=== PATIENT | female | born 1990 | race Caucasian/White ===

== ENCOUNTER 2019-09-24 04:08 | Inpatient (IN) | payer OTHER ==
[2019-09-24] VITALS (17 sets, daily range): BP systolic 102–143; BP diastolic 55–90
[~2019-09-24] VITALS: Ht 165.1 cm; Wt 72.0 kg
[2019-09-24] MEDS ORDERED: LACTATED RINGER'S 1000 ML IV STA ×2 (04:52→04:57)
[2019-09-24] MEDS ORDERED: LR 1,000 ML IV SCH ×2 (04:52→07:00)
[2019-09-24] MEDS ORDERED: NALBUPHINE HCL 10 MG/ML AMP (J2300) IV ONE (05:00)
[2019-09-24 05:35] LABS: BASO # 0.1 10^3/uL (0.0-0.2); BASO % 0.4 % (0.0-1.0); EOS % 0.3 % (0.0-3.0); HEMOGLOBIN 10.8 g/dl (12.0-15.5); LYMPH # 2.1 10^3/uL (1.5-5.0); LYMPH % 14.7 % (24.0-44.0); MEAN CORPUSCULAR HGB CONC 32.7 g/dl (32.0-36.5); MEAN CORPUSCULAR VOLUME 88.7 fl (80.0-96.0); MONO # 1.2 10^3/uL (0.0-0.8); MONO % 8.4 % (0.0-5.0); NEUTROPHILS # 10.7 10^3/uL (1.5-8.5); NEUTROPHILS % 75.2 % (36.0-66.0); PLATELET COUNT, AUTOMATED 215 10^3/uL (150-450); RED BLOOD COUNT 3.72 10^6/uL (4.00-5.40); WHITE BLOOD COUNT 14.2 10^3/uL (4.0-10.0)
--- NOTE | 2019-09-24 05:50 | HPEPDOC ---
Obstetrical History & Physical General Date of Admission Sep 24, 2019 at 04:52 History of Present Illness patient is a 29 yo G1 @ 40+1wks gestation presents with regular painful contractions. denies LOF/VB. Patient desires unmedicated delivery. Chief Complaint: Contractions, term Information Provided By: Patient Age: 29 : 1 Term: 0 Pre-term: 0 Abortions: 0 Livin Care Care: Good Care Dating Final EDC: Sep 22, 2019 Final EDC for Daily Update: Sep 22, 2019 Final EDC by: 1st trimester (US) EGA at Admission: 40 Past Medical History Past Obstetrical History : Past Obstetrical History: Primgravida [employer] History: No pertinent history Past Medical History Medical History denies Surgical History: Denies/None Family History Significant Family History: No pertinent family hx Social History Marital Status: Family situation: Spouse/partner home * Smoker: non-smoker Alcohol: Denies Drugs: denies Imunizations Tdap status: current Influenza Status: current Allergies Coded Allergies: No Known Allergies (Unverified , 09/24/19) Physical Examination Physical Examination GENERAL: Alert and oriented times three. BREAST: . ABDOMEN: Gravid and non-tender to touch. FETUS: fetus is vertex (VTX) by Dm. HEART RATE: Regular rate and rhythm. LUNGS: Clear to auscultation (CTA). EXTREMITIES: No edema/erythema/tenderness. EFW: 3400gm Laboratory Data 24H LABS Laboratory Tests 2 09/24/19 05:02: Serology Scanned Report Hepatitis B Testing 09/24/19 05:20: Immature Granulocyte % (Auto) 1.0, Neutrophils (%) (Auto) 75.2H, Lymphocytes (%) (Auto) 14.7L, Monocytes (%) (Auto) 8.4H, Eosinophils (%) (Auto) 0.3, Basophils (%) (Auto) 0.4, Neutrophils # (Auto) 10.7H, Lymphocytes # (Auto) 2.1, Monocytes # (Auto) 1.2H, Eosinophils # (Auto) 0.0, Basophils # (Auto) 0.1, Nucleated Red Blood Cells % (auto) 0.0 CBC/BMP Laboratory Tests 09/24/19 05:20 Pertinent Laboratoy Data Blood Type: A- RBC Antibody Screen: Negative HIV: Negative Hepatitis B: Negative Rapid Plasma Reagin: Nonreactive Rubella: Immune Varicella: Immune Chlamydia/Gonorrhea: Negative Group B Streptococcus: Negative Anatomy Ultrasound Placenta Location: Anterior Normal Anatomy: Yes Placenta Previa: No Vaginal Examination Dilation: 6 cm Effacement: 90% Station: -1 Presentation: Cephalic presentation Assessment Heart Rate (FHR): 135 Variability: Moderate Accelerations: Positive Decelerations: None Tocometer Contractions: Yes Frequency: every 1-3 min. Assessment/Plan Assessment Patient is a 29 G1 @40+1wks gestation in labor. Discussed with patient risk of emergent delivery for /maternal concern; use of antibiotics for s/s of infection; bleeding requiring blood transfusion and associated risks; p ossible operative vaginal delivery with forceps or vacuum; episiotomy; use of internal monitoring. Plan Admit and orient. 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 Diet: clear Group B Streptococcus (GBS) neg Labs and intravenous (IV) per unit protocol. augmentation with pit as needed anesthesia consult for pain management as needed. pelvis adequate for trial of labor. SRINIVAS CHEN DO Sep 24, 2019 05:50
[2019-09-24] MEDS ORDERED: PROMETHAZINE INJ 25 MG/ML VIAL (J2550) IV ONE ×2 (07:00→09:00)
[2019-09-24] MEDS ORDERED: NALBUPHINE HCL 10 MG/ML AMP (J2300) IM ONE (07:00)
--- NOTE | 2019-09-24 08:59 | IPNPDOC ---
Text Note Date of Service The patient was seen on 09/24/19. NOTE Patient seen. Slightly uncomfortable with contractions, but tolerating well. Not receiving pain control. FHT: 130s, reactive, no decels, Category 1. SVE 7/100/0 AROM clear. Continue expectant mgt after AROM. Pain control per patient. Will switch to IV stadol if desired. Fetus reassuring. VS,Fishbone, I+O VS, Fishbone, I+O Laboratory Tests 09/24/19 05:20 Vital Signs Date Time Temp Pulse Resp B/P (MAP) Pulse Ox O2 Delivery O2 Flow Rate FiO2 09/24/19 04:35 98.2 100 122/81 (95) 98.2 Ciara Walker MD Sep 24, 2019 08:59
[2019-09-24] MEDS ORDERED: BUTORPHANOL 2 MG/ML INJ (J0595) IV PRN (09:00)
--- NOTE | 2019-09-24 10:55 | IPNPDOC ---
Text Note Date of Service The patient was seen on 09/24/19. NOTE Intrapartum Note Patient doing well, still does not desire epidural. Vitals wnl, afebrile Cat I FHRT with bl 130's, +accels, -decels, mod antoinette [place]: ctx q2min SCE /-1, clear fluid still Will continue to closely monitor Plan to recheck in 2hr or earlier as indicated Safe to proceed Dr. Esmer Rose MD VS,Melina, I+O VSMelina I+O Laboratory Tests 09/24/19 05:20 Vital Signs Date Time Temp Pulse Resp B/P (MAP) Pulse Ox O2 Delivery O2 Flow Rate FiO2 09/24/19 10:21 18 119/66 09/24/19 10:17 98.2 91 Room Air 98.2 09/24/19 07:03 98 Esmer Rose MD Sep 24, 2019 10:55
[2019-09-24] MEDS ORDERED: OXYTOCIN 30 UNITS IN 0.9% NaCl 500ML IV BAG (J2590) As Ordered ONE (12:46)
--- NOTE | 2019-09-24 13:49 | IPNPDOC ---
Text Note Date of Service The patient was seen on 09/24/19. NOTE Called by nurse due to patient having significant pressure. Patient with sign ificant discomfort during contractions and trying not to push. x1 stadol. Declines epidural. FHT 150s, reactive, no decels currently, previously had variables, contractions q2-4min, Category 1. SVE 9/100/2. Will try bath tub to relax patient. Discussed not pushing until cervix completely dilated due to risk of cervical laceration which patient understood. VS,Fishbone, I+O VS, Fishbone, I+O Laboratory Tests 09/24/19 05:20 Vital Signs Date Time Temp Pulse Resp B/P (MAP) Pulse Ox O2 Delivery O2 Flow Rate FiO2 09/24/19 12:59 98.1 82 18 125/59 (81) Room Air 98.1 09/24/19 07:03 98 Ciara Walker MD Sep 24, 2019 13:49
[2019-09-24] MEDS ORDERED: cefTRIAXone SOD 1 GM VIAL (J0696) As Ordered ONE (14:41)
[2019-09-24] MEDS ORDERED: OXYTOCIN DRIP 30 UNITS in IV 1 EA IV SCH (16:29)
[2019-09-24] MEDS ORDERED: ONDANSETRON 4MG/2ML VIAL (J2405) IV PRN (16:30)
[2019-09-24] MEDS ORDERED: METHYLERGONOVINE MALEATE 0.2 MG TAB PO PRN (16:30)
[2019-09-24] MEDS ORDERED: IBUPROFEN 600 MG TAB PO PRN ×2 (16:30)
[2019-09-24] MEDS ORDERED: MOM 30ML SUSPENSION UDC PO PRN (16:30)
[2019-09-24] MEDS ORDERED: IBUPROFEN 800 MG TAB PO PRN (16:30)
[2019-09-24] MEDS ORDERED: SIMETHICONE 80 MG CHEW TAB PO PRN (16:30)
[2019-09-24] MEDS ORDERED: LIDOCAINE 1% MDV 20ML VIAL INFIL ONE ×2 (16:30)
[2019-09-24] MEDS ORDERED: RHOGAM 300 MCG (1500 IU) INJ (J2790) IM SCH ×2 (16:30)
[2019-09-24] MEDS ORDERED: MEASLES,MUMPS,RUBELLA VACCINE INJ (MMR-II) (90707) SC SCH ×2 (16:30)
[2019-09-24] MEDS ORDERED: DIBUCAINE 1% OINTMENT 30GM TOP PRN ×2 (16:30)
[2019-09-24] MEDS ORDERED: ANUSOL HC CREAM 30GM TOP PRN (16:30)
[2019-09-24] MEDS ORDERED: DOCUSATE SODIUM 100 MG CAP PO PRN (16:30)
[2019-09-24] MEDS ORDERED: ACETAMINOPHEN 500 MG TAB PO PRN (16:30)
[2019-09-24] MEDS ORDERED: ACETAMINOPHEN TAB 650MG DOSE (2X325MG) PO PRN (16:30)
[2019-09-24] MEDS ORDERED: cefTRIAXone SOD 1 GM in D5W MINI-BAG PLUS 50 ML IV ONE (16:45)
--- NOTE | 2019-09-24 16:46 | DNPDOC ---
[facility] Delivery Note Delivery Note DATE OF DELIVERY: 09/24/2019 PREDELIVERY DIAGNOSIS: 40 2/7 weeks' gestation and labor. POST DELIVERY DIAGNOSIS: Delivered. PROCEDURE: Spontaneous vaginal delivery. BUSINESS TECHNOLOGY TEACHER: Dr. Ciara Walker ANESTHESIA: Stadol and Phenergan once at 10:21 09/24/2019. ESTIMATED BLOOD LOSS: 250 mL. FINDINGS: 8 pound 8 ounce male , Score 9/9, nuchal cord times 0. DELIVERY SUMMARY: Patient is a 29-year-old 1 now para 1-0-0-0 who was admitted to labor and delivery for active labor. She progressed normally. AROM with clear fluid at 08:37. She was fully dilated at 14:21 and began pushing at 14:21. She delivered at 15:03 on an intact perineum the 's head in JACKSON position without suctioning. The body did not follow due to shoulder dystocia which was easily reduced with Chantel positioning (20seconds). The body was then delivered with immediate crying. The cord was clamped x2 and cut by dad. Baby was handed to mom on abdomen. Baby was checked and no injury to head or right shoulder noted. Placenta delivered at 15:19 without difficulty spontaneously. Pitocin bolused. Repair of small bilateral sulcus tears of about 5mm at each side of introitus was performed. Anesthesia with 1% lidocaine was injected into area of 4mL and repair performed with figure of eights with 3-0 chromic. Fundus was firm and cervix checked which was normal and trupti appropriately. Ciara Walker MD Sep 24, 2019 16:46
[2019-09-24] MEDS: IBUPROFEN 800 MG TAB PO PRN (17:44)
[2019-09-24] MEDS ORDERED: DOCUSATE SODIUM 100 MG CAP PO SCH (21:00)
[2019-09-25 06:00] VITALS: BP 114/61
[2019-09-25] MEDS: IBUPROFEN 800 MG TAB PO PRN (06:08)
[2019-09-25] MEDS: PRENATAL VITAMINS CHEWABLE TABLET PO SCH (08:52)
[2019-09-25] MEDS ORDERED: PRENATAL VITAMINS CHEWABLE TABLET PO SCH (09:00)
--- NOTE | 2019-09-25 11:09 | IPNPDOC ---
Progress Note Date of Service: Sep 25, 2019 Day#: 1 Progress Note PPD 1 SUBJECT: Rita is a 29yo [id number] s/p uncomplicated on 09/24/19 after presenting in active labor at 40w1d, doing well day # 1. She has been ambulating, voiding spontaneously without issue and tolerating regular diet. Breast feeding without issue. No f/c/n/v/CP/SOB. OBJECTIVE: VITAL SIGNS: Within normal limits, afebrile. Alert and oriented times three. Abdomen: Fundus firm at U-2. Soft, NTTP. Extremities: no edema of BLE ASSESSMENT: Rita is a 29yo [id number] s/p uncomplicated on 09/24/19 after presenting in active labor at 40w1d, doing well day # 1. Vitals within normal limits, afebrile, hemodynamically stable with no evidence of infection. PLAN: 1. Routine care 2. Tylenol and Motrin for pain. 3. Encourage breast feeding and ambulation. 4. Regular diet 5. Possible discharge home tomorrow if meeting all milestones Dr. Esmer Rose MD VS, I&O, 24H, Fishbone Vital Signs/I&O Vital Signs Date Time Temp Pulse Resp B/P (MAP) Pulse Ox O2 Delivery O2 Flow Rate FiO2 09/25/19 06:00 98.0 70 16 114/61 (78) 98 Room Air 98.0 I&O- Last 24 Hours up to 6 AM 09/25/19 06:00 Intake Total 3197 ml Output Total 1500 ml Balance 1697 ml Esmer Rose MD Sep 25, 2019 11:09
[2019-09-25 17:56] VITALS: BP 116/68
[2019-09-26 05:30] VITALS: BP 110/57
[2019-09-26] MEDS ORDERED: DOCU100C16 PO (06:52)
[2019-09-26] MEDS ORDERED: IBUP80TA PO (06:52)
[2019-09-26] MEDS ORDERED: DIBU10OI TOP (06:52)
[2019-09-26] MEDS ORDERED: PROC1CRE5 TOP (06:52)
[2019-09-26] MEDS: PRENATAL VITAMINS CHEWABLE TABLET PO SCH (09:13)
[2019-09-26] MEDS: IBUPROFEN 800 MG TAB PO PRN (09:30)
--- NOTE | 2019-09-26 17:17 | DSES ---
DATE OF ADMISSION: 09/24/2019 DATE OF DISCHARGE: 09/26/2019 A 29-year-old 1, now para 1, admitted at 40 and 1 weeks' of gestation with contractions, had a spontaneous vaginal delivery, male infant, 8 pounds 8 ounces, scores of 9 and 9 at one and five minutes respectively. She has some local anesthetic for bilateral sulcal tears, which were repaired in the usual fashion. She is uncertain at the present time what she wants to do for control. We will discuss that at 6-week checkup. Her admitting hemoglobin was 10.8, hematocrit 33.0, and platelets were 215. Her vital signs on discharge: Her blood pressure was 110/57, respirations 17, pulse 61, temperature 97.7. We discussed phlebitis, cystitis, mastitis, endometritis and cellulitis, diet, exercise pain management, perineal breast care. The rest of the examination unremarkable. Normocephalic, atraumatic. Neck full range of motion. Pupils equal and reactive to light. Distal pulses symmetric. No evidence of deep venous thrombosis (DVT). Pulmonary embolism (PE), or superficial phlebitis. Chest is clear bilaterally bases. No wheezes or rhonchi. No costovertebral angle (CVA) tenderness. Abdomen soft. Four quadrant bowel sounds are noted. Uterus 2 below. Lochia is moderate. Perineum is healing. No rashes, lesions or pruritus arthralgia, myalgia. No complaint of joint pain. No complaint of cough, wheeze, shortness breath or dyspnea on exertion. She has no nausea, vomiting, diarrhea or constipation. In summary, we have a term gestation, delivered a live male infant. Plans are discharge today. Medications were dispensed at [place]. is going well.
--- NOTE | 2019-09-28 10:47 | IPN ---
DATE OF SERVICE: 09/25/2019 This patient has requested circumcision of their male . After discussing risks and benefits of circumcision, the medical, the nonmedical indications, the penile block, and aftercare, expressed understanding of penile block and aftercare, signed the consent form. All questions were answered. 20-minute discussion. We await the clearance by the certified nurses aide.
== END 2019-09-26 12:25 | disposition home or self-care (01) | DRG 807 ==
LOC: M LDO 04:08 → M LDI 04:52 → M OBS 18:09
PROVIDERS: ADMIT Obstetrics & Gynecology; ATTEND Obstetrics & Gynecology
PROC: 10E0XZZ Delivery of Products of Conception, External Approach (ICD-10-PCS; principal; 2019-09-24)
PROC: 10907ZC Drainage of Amniotic Fluid, Therapeutic from Products of Conception, Via Natural or Artificial Opening (ICD-10-PCS; 2019-09-24)
PROC: 0HQ9XZZ Repair Perineum Skin, External Approach (ICD-10-PCS; 2019-09-24)
DX: O48.0 Post-term pregnancy (principal); Z37.0 Single live birth; O70.0 First degree perineal laceration during delivery; Z3A.40 40 weeks gestation of pregnancy; O66.0 Obstructed labor due to shoulder dystocia

== ENCOUNTER → 2021-01-15 | Outpatient (CLI) | payer OTHER ==
[~2021-01-15] MED LIST: DIBU28OI2 TOP; DOCU100C16 PO; IBUP80TA PO; PROC1CRE5 TOP
--- NOTE | 2021-01-15 15:11 | REP ---
INDICATION: F/U ANATOMY COMPARISON: None. TECHNIQUE: Transabdominal obstetrical ultrasound with color Doppler evaluation. FINDINGS: Examination demonstrates a single live intrauterine in cephalic presentation. motion is identified by technologist. Placenta is noted posterior/fundal and grade 1 without evidence for placenta previa or abruption. Amniotic fluid volume is normal. Cervix measures 3.1 cm in length and appears closed.. Gestational age by LMP 22 weeks 4 days with DARRELL 05/17/2021. Gestational age by current measurements 21 weeks 6 days with DARRELL 05/22/2021. FHR equals 140 beats per minute. Estimated weight 454 grams (14thpercentile). Anatomical assessment demonstrates normal structures including choroid plexus, cerebellum, cisterna magna/posterior fossa. IMPRESSION: Single live intrauterine in cephalic presentation demonstrating appropriate estimated weight. Normal anatomical findings as described above. <Electronically signed by Reji Neri > 01/15/21 1022
== END ==
LOC: M WHC 12:54
PROVIDERS: ATTEND Obstetrics & Gynecology
DX: Z34.82 Encounter for supervision of other normal pregnancy, second trimester (principal); Z3A.18 18 weeks gestation of pregnancy